=== PATIENT | female | born 1960 | race Caucasian/White ===

== ENCOUNTER 2017-01-23 09:51 | Emergency (ER) | payer OTHER ==
[~2017-01-23] VITALS: Wt 115.7 kg
[~2017-01-23 09:51] MED LIST: ACTOS15 MG PO; ALDACTONE100 MG PO; GLIPIZIDE5 M1 PO; LEXAPRO5 MG PO; Levoxyl0.137 MG PO; NORCO 325 MG-51 TAB PO; PARAFON FORTE500 MG PO; [UNRECOGNIZED DRUG - REMARK]
== END 2017-01-23 12:28 | disposition home or self-care (01) ==
LOC: ED 09:51
DX: M25.562 Pain in left knee (principal); M25.462 Effusion, left knee; Z88.1 Allergy status to other antibiotic agents; Z88.5 Allergy status to narcotic agent; E11.9 Type 2 diabetes mellitus without complications; E03.9 Hypothyroidism, unspecified; Z86.718 Personal history of other venous thrombosis and embolism

== ENCOUNTER 2018-07-02 17:42 | Inpatient (IN) | payer OTHER ==
[~2018-07-02] VITALS: Ht 160 cm; Wt 114.5 kg
--- NOTE | ~2018-07-02 | EKG ---
[place], [place] ELECTROCARDIOGRAM REPORT NAME: AMINA PETTY UNIT #: [id number] ROOM: 512 DOCTOR: LUCILLE DRAFT REPORT BIRTHDATE: [birth year] [facility] Test Date: 2018-07-02 Test Time: 18:12:22 Pat Name: AMINA PETTY Department: Room: 512 Gender: F Farm Equipment Mechanic: : 1960 Requested By: TONG JOVEL PA-C Order Number: [id number] Reading MD: Donavan Monroe MD Measurements Intervals [place] Rate: 90 P: -14 PA: 200 QRS: 29 QRSD: 92 T: 28 QT: 340 QTc: 416 Interpretive Statements Sinus rhythm Low voltage, precordial leads Electronically Signed On 07-03-2018 16:16:46 PST by Donavan Monroe MD CM:EKGRPT:ELECTROCARDIOGRAM REPORT [id number] TONG JOVEL PA-C EPIPHANY DRAFT REPORT TONG JOVEL PA-C
[~2018-07-02 17:42] MED LIST changes: +LEXAPRO5 M1 PO; -LEXAPRO5 MG PO
[2018-07-02 17:43] VITALS: BP 131/69
[2018-07-02 18:22] LABS: HEMATOCRIT 40.9 % (37.0-47.0); HEMOGLOBIN 13.9 g/dl (12.0-16.0); MEAN CELL VOLUME 91.5 fl (81.0-99.0); MEAN CORPUSCULAR HGB 31.1 pg (27.0-31.0); MEAN PLATELET VOLUME 10.3 fl (9.6-12.3); PLATELET COUNT AUTOMATED 117 10*3/uL (130-400); RED BLOOD COUNT 4.47 10*6/uL (4.10-5.10); RED CELL DISTRI WIDTH 12.6 % (0-14.5); WHITE BLOOD COUNT 3.7 10*3/uL (4.8-10.8)
--- NOTE | 2018-07-02 18:33 | NUR ---
POX 88% ON ROOM AIR AFTER AEROSOL TX. PLACED ON 2L NC.
[2018-07-02 18:42] LABS: ACT PARTIAL THROMBO TIME 22.4 SECONDS (20.8-31.5); INTERNATIONAL NORM RATIO 1.1 (2.0-3.5)
[2018-07-02 18:44] LABS: ALBUMIN 2.9 gm/dl (3.1-4.5); ALKALINE PHOSPHATASE 133 U/L (45-117); ATYPICAL LYMPHS 1 % (0-0); BUN 14 mg/dl (7-24); BURR CELLS FEW; CHLORIDE 92 mmol/L (98-107); CREATININE 1.06 mg/dL (0.55-1.02); PLATELET SUFFICIENCY NORMAL (NORMAL); POTASSIUM 4.1 mmol/L (3.5-5.1); SGOT/AST 173 IU/L (3-35); SGPT/ALT 147 U/L (12-78); SODIUM 130 mmol/L (136-145); TOTAL CELLS COUNTED 100 #CELLS; TOTAL PROTEIN 7.6 gm/dL (6.4-8.2)
[2018-07-02 18:48] LABS: TROPONIN I < 0.015 ng/ml (<0.045)
[2018-07-02 19:09] LABS: BILIRUBIN NEGATIVE (NEGATIVE); BLOOD TRACE-INTACT (NEGATIVE); CLARITY SL CLOUDY (CLEAR); COLOR YELLOW (YELLOW); GLUCOSE 1+ (NEGATIVE); KETONE TRACE (NEGATIVE); LEUKO ESTERASE NEGATIVE (NEGATIVE); NITRITE NEGATIVE (NEGATIVE); SPECIFIC GRAVITY 1.025 (1.005-1.030)
[2018-07-02 19:14] LABS: BACTERIA 2+; RBC 0-2 rbc/hpf (0-2)
[2018-07-02 19:15] LABS: MUCOUS TRACE
[2018-07-02 20:07] VITALS: BP 130/70
[2018-07-02 21:10] VITALS: BP 124/51
--- NOTE | 2018-07-02 21:10 | NUR ---
A 57, admitted to , under the services of SAMEER Worthy DO with a diagnosis of VIRAL SYNDROME, HYPOXIA. Chief complaint is COUGH, CONGESTION, CHILLS FOR ABOUT A WEEK. Patient arrived via stretcher from ER. Monitor applied. Initial assessment completed. Vital signs taken and recorded. SAMEER WORTHY DO notified of admission to the unit. Orders received. See assessment for past medical history, medications and allergies. Patient and/or family oriented to unit. [facility] visitation policy reviewed. Clothing/patient valuable form completed. TANG ARREOLA
--- NOTE | 2018-07-02 21:20 | NUR ---
IV LEVAQUIN INFUSING WHEN TAKEN TO FLOOR
[2018-07-02] MEDS ORDERED: LEVOXYL137 MCG PO (21:47)
[2018-07-02] MEDS ORDERED: GLUCOPHAGE1000 MG PO (21:51)
[2018-07-02] MEDS ORDERED: TRESIBA FL200 UNIT/1 SQ (21:54)
[2018-07-02] MEDS ORDERED: METFORMIN HYDR500 MG PO (21:58)
--- NOTE | 2018-07-02 22:00 | NUR ---
CALLED DR. HEADLEY TO INFORM HIM THAT PT'S MED REC WAS UPDATED.
[2018-07-02] MEDS ORDERED: HUMALOG 751 UNIT/0.0 SC (22:01)
[2018-07-02] MEDS ORDERED: TRAZODONE100 MG PO (22:28)
[2018-07-02] MEDS ORDERED: PRAVACHOL40 MG PO (22:30)
--- NOTE | 2018-07-02 23:21 | NUR ---
MEDICATED WITH TRAZODONE PER PT'S REQUEST. STATES THAT SHE CANNOT SLEEP WITHOUT IT.
--- NOTE | 2018-07-02 23:30 | NUR ---
BLOOD SUGAR 213.
[2018-07-03] VITALS: BP 119/59
[2018-07-03 07:14] LABS: HEMATOCRIT 39.5 % (37.0-47.0); HEMOGLOBIN 13.1 g/dl (12.0-16.0); MEAN CELL VOLUME 92.3 fl (81.0-99.0); MEAN CORPUSCULAR HGB 30.6 pg (27.0-31.0); MEAN CORPUSCULAR HGB CONC 33.2 g/dl (33.0-37.0); MEAN PLATELET VOLUME 10.7 fl (9.6-12.3); PLATELET COUNT AUTOMATED 117 10*3/uL (130-400); RED BLOOD COUNT 4.28 10*6/uL (4.10-5.10); RED CELL DISTRI WIDTH 12.8 % (0-14.5); WHITE BLOOD COUNT 2.5 10*3/uL (4.8-10.8)
[2018-07-03 07:49] LABS: ALBUMIN 2.6 gm/dl (3.1-4.5); ALKALINE PHOSPHATASE 129 U/L (45-117); BUN 16 mg/dl (7-24); CHLORIDE 97 mmol/L (98-107); CHOLESTEROL 135 mg/dL (<200); CREATININE 0.92 mg/dL (0.55-1.02); FREE T4 1.12 ng/dl (0.76-1.46); HDL CHOLESTEROL 19 mg/dl (40-60); LDL CHOLESTEROL 84 mg/dL (9-159); POTASSIUM 4.5 mmol/L (3.5-5.1); SGOT/AST 110 IU/L (3-35); SGPT/ALT 137 U/L (12-78); SODIUM 133 mmol/L (136-145); TOTAL PROTEIN 7.3 gm/dL (6.4-8.2); TRIGLYCERIDES 160 mg/dl (<150); VLDL CHOLESTEROL 32 mg/dL (6-40)
[2018-07-03 07:54] LABS: THYROID STIM HORMONE (HS) 0.675 uIU/ml (0.358-4.75)
[2018-07-03 07:56] LABS: ATYPICAL LYMPHS 5 % (0-0); TOTAL CELLS COUNTED 100 #CELLS
[2018-07-03 07:58] LABS: PLATELET SUFFICIENCY NORMAL (NORMAL)
[2018-07-03 08:00] VITALS: BP 120/60
--- NOTE | 2018-07-03 11:46 | NUR ---
Digital Analyst in to talk to patient. Patient states lives at HOME with BOYFRIEND. There are NO steps in the home. Physician: ANNAMARIA Pharmacy: MAIL ORDER Home health services: NONE Patient's level of ADLs: INDEPENDENT Patient has working utilities: YES DME: NONE Follow-up physician's appointment after d/c: WILL BE MADE BY HOSPITALIST NURSE DIRECTOR ON DISCHARGE Does patient want to access PORTAL?: NO Discharge plan PT STATES SHE LIVES AT HOME AND IS INDEPENDENT IN CARE. DENIES ANY NEEDS ON DISCHARGE. CAN BE DISCHARGED TO HOME WHEN MEDICALLY STABLE.. JOHN NEAL
[2018-07-03 12:00] VITALS: BP 113/67
--- NOTE | 2018-07-03 14:14 | NUR ---
DR BRITT INFORMED OF REDNESS TO INGUINAL AREA. NYSTATIN POWDER TO BE ORDERED.
[2018-07-03 16:00] VITALS: BP 118/74
--- NOTE | 2018-07-03 19:58 | NUR ---
24 HR chart check completed.
[2018-07-03 20:00] VITALS: BP 121/55
--- NOTE | 2018-07-03 20:00 | NUR ---
SITTING IN RECLINER, TALKING ON PHONE. RESPIRATIONS EASY. LUNGS DIMINISHED, CLEAR. PULSE OX 94% RA. CLAIMS INFREQUENT COUGH, NONE NOTED UPON ASSESSMENT. OFFERED AND EDUCATED REGARDING TEDS, DECLINED STATING SHE IS AMBULATING WITHIN ROOM. CALL LIGHT WITHIN REACH. NO VOICED COMPLAINTS
--- NOTE | 2018-07-03 21:00 | NUR ---
PATIENT PICKS UP GLASS OF WATER AND EXAGGERATINGLY BEGINS SHAKING HAND, STATING "LOOK HOW BAD I'M SHAKING, I CAN'T HOLD MY WATER." WHILE CONVERSING WITH PATIENT, NO SHAKING NOTED.
--- NOTE | 2018-07-03 21:15 | NUR ---
BSG 380. NO SLIDING SCALE COVERAGE ORDERED. HOME MEDS REVIEWED WITH PATIENT AND UPDATED IN MED REC. DR YOON CONTACTED AND INFORMED OF ELEVATED SUGAR WITH NO COVERAGE DUE
--- NOTE | 2018-07-03 21:20 | NUR ---
DR HEADLEY CALLED IN. HOME MEDS AND ELEVATED BSG REVIEWED. DR HEADLEY TO ENTER NEW ORDERS
--- NOTE | 2018-07-03 22:30 | NUR ---
ORTHOS CHECKED, NEGATIVE. SUPINE 125/52 70 SITTING 125/52 68 STANDING 129/54 75
[2018-07-04] VITALS: BP 117/63
--- NOTE | 2018-07-04 | NUR ---
REMAINS IN RECLINER, NO DISTRESS NOTED. RESPIRATIONS EASY. VSS. CALL LIGHT WITHIN REACH
--- NOTE | 2018-07-04 03:00 | NUR ---
REMAINS IN RECLINER SLEEPING WITH NO DISTRESS NOTED. RESPIRATIONS EASY. CALL LIGHT WITHIN REACH
--- NOTE | 2018-07-04 06:00 | NUR ---
UPON AWAKENING FOR AM MEDS AND BSG CHECK, PATIENT STATES "I ONLY SLEPT 1 HR". HOWEVER, PATIENT WAS OBSERVED SLEEPING IN RECLINER UPON RN ROUNDING THROUGHOUT NIGHT. HESITANT TO TAKE SLIDING SCALE INSULIN COVERAGE, EDUCATED REGARDING IMPORTANCE OF REGULATING SUGARS. PATIENT RELUCTANT BUT ALLOWS RN TO ADMINISTER COVERAGE
[2018-07-04 06:44] LABS: ALBUMIN 2.8 gm/dl (3.1-4.5); ALKALINE PHOSPHATASE 111 U/L (45-117); BUN 22 mg/dl (7-24); CHLORIDE 100 mmol/L (98-107); CREATININE 0.84 mg/dL (0.55-1.02); POTASSIUM 4.3 mmol/L (3.5-5.1); SGOT/AST 47 IU/L (3-35); SGPT/ALT 104 U/L (12-78); SODIUM 137 mmol/L (136-145); TOTAL PROTEIN 7.1 gm/dL (6.4-8.2)
[2018-07-04 08:00] VITALS: BP 118/62
--- NOTE | 2018-07-04 08:00 | NUR ---
SITTING UP IN BED. RESP-EASY AND REGULAR. NO C/O AT THIS TIME. CALL LIGHT IN REACH. SEE SHIFT ASSESSMENT.
--- NOTE | 2018-07-04 09:00 | NUR ---
TOLERATED ROUTINE MEDS WITH NO PROBLEM. NO C/O AT THIS TIME. CALL LIGHT IN REACH.
--- NOTE | 2018-07-04 09:45 | NUR ---
Discharge instructions reviewed with patient/family. Patient receptive and verbalizes understanding. Follow-up care arranged. Written instructions given to patient/family. HEPLOCK REMOVED 2X2 APPLIED. MONITOR REMOVED. MANNY SWARTZ
--- NOTE | 2018-07-04 10:00 | NUR ---
ESCORTED VIA WHEELCHAIR FOR DISCHARGE.
[2018-07-04] MEDS ORDERED: PREDNISONE10 MG PO (10:47)
[2018-07-04] MEDS ORDERED: LEVAQUIN750 M1 PO (10:47)
== END 2018-07-04 10:00 | disposition home or self-care (01) | DRG 871 ==
LOC: ED 17:42 → EDHOLD 19:55 → 5E 19:55
PROVIDERS: Family Medicine; Physician Assistant; Student in an Organized Health Care Education/Training Program; ADMIT Internal Medicine
DX: A41.9 Sepsis, unspecified organism (principal); J96.01 Acute respiratory failure with hypoxia; E43 Unspecified severe protein-calorie malnutrition; E87.1 Hypo-osmolality and hyponatremia; N30.01 Acute cystitis with hematuria; J44.1 Chronic obstructive pulmonary disease with (acute) exacerbation; J45.21 Mild intermittent asthma with (acute) exacerbation; Z68.41 Body mass index [BMI] 40.0-44.9, adult; R65.20 Severe sepsis without septic shock; Z96.651 Presence of right artificial knee joint; B34.9 Viral infection, unspecified; D69.6 Thrombocytopenia, unspecified; E66.01 Morbid (severe) obesity due to excess calories; D72.810 Lymphocytopenia; E03.9 Hypothyroidism, unspecified; L65.9 Nonscarring hair loss, unspecified; E78.5 Hyperlipidemia, unspecified; F32.9 Major depressive disorder, single episode, unspecified; G47.9 Sleep disorder, unspecified; E11.65 Type 2 diabetes mellitus with hyperglycemia; Z87.891 Personal history of nicotine dependence; Z82.49 Family history of ischemic heart disease and other diseases of the circulatory system; Z83.3 Family history of diabetes mellitus; Z83.438 Family history of other disorder of lipoprotein metabolism and other lipidemia; Z83.1 Family history of other infectious and parasitic diseases; Z88.1 Allergy status to other antibiotic agents; Z88.8 Allergy status to other drugs, medicaments and biological substances; Z79.899 Other long term (current) drug therapy; Z79.4 Long term (current) use of insulin

== ENCOUNTER 2022-12-07 20:14 | Emergency (ER) | payer OTHER ==
[~2022-12-07] VITALS: Ht 160 cm; Wt 124.7 kg
[~2022-12-07 20:14] MED LIST changes: +GLUCOPHAGE1000 MG PO; +HUMALOG 751 UNIT/0.0 SC; +LEVAQUIN750 M1 PO; +LEVOXYL137 MCG PO; +METFORMIN HYDR500 MG PO; +PRAVACHOL40 MG PO; +PREDNISONE10 MG PO; +TRAZODONE100 MG PO; +TRESIBA FL200 UNIT/1 SQ
[2022-12-07] MEDS ORDERED: REXULTI1 MG PO (20:29)
[2022-12-07] MEDS ORDERED: AUVELITY ER 451 EACH PO (20:30)
[2022-12-07] MEDS ORDERED: HYDROCODONE-AC1 EAC1 PO (22:44)
== END 2022-12-08 06:22 | disposition home or self-care (01) ==
LOC: ED 20:14
DX: S42.202A Unspecified fracture of upper end of left humerus, initial encounter for closed fracture (principal); S02.2XXA Fracture of nasal bones, initial encounter for closed fracture; M79.641 Pain in right hand; E11.9 Type 2 diabetes mellitus without complications; Z88.8 Allergy status to other drugs, medicaments and biological substances; Z98.890 Other specified postprocedural states; Z96.651 Presence of right artificial knee joint; Z87.891 Personal history of nicotine dependence; W01.198A Fall on same level from slipping, tripping and stumbling with subsequent striking against other object, initial encounter; Y93.89 Activity, other specified; Y92.009 Unspecified place in unspecified non-institutional (private) residence as the place of occurrence of the external cause; Y99.8 Other external cause status

== ENCOUNTER 2023-06-17 08:03 | Emergency (ER) | payer OTHER ==
[~2023-06-17] VITALS: Ht 160 cm; Wt 102.1 kg
[~2023-06-17 08:03] MED LIST changes: +AUVELITY ER 451 EACH PO; +HYDROCODONE-AC1 EAC1 PO; +REXULTI0.5 MG PO; +REXULTI1 MG PO
== END 2023-06-17 09:26 | disposition home or self-care (01) ==
LOC: ED 08:03
DX: K94.03 Colostomy malfunction (principal); Z88.8 Allergy status to other drugs, medicaments and biological substances; Z98.890 Other specified postprocedural states; Z96.651 Presence of right artificial knee joint; Z87.891 Personal history of nicotine dependence; Y84.8 Other medical procedures as the cause of abnormal reaction of the patient, or of later complication, without mention of misadventure at the time of the procedure; Y82.8 Other medical devices associated with adverse incidents

== ENCOUNTER 2023-06-21 13:58 | Emergency (ER) | payer OTHER, MEDICAID ==
[~2023-06-21] VITALS: Ht 160 cm; Wt 99.8 kg
[2023-06-21] MEDS ORDERED: FOLIC ACID0.8 M1 PO (14:16)
[2023-06-21 14:58] LABS: BASO # 0.1 10*3/uL (0.0-0.1); BASO % 0.4 % (0.0-1.0); EOS # 0.3 10*3/uL (0.0-0.4); EOS % 2.8 % (1.0-4.0); LYMPH # 1.3 10*3/uL (1.3-4.4); LYMPH % 10.7 % (27.0-41.0); MEAN CELL VOLUME 91.5 fl (81.0-99.0); MEAN CORPUSCULAR HGB CONC 32.8 g/dl (33.0-37.0); MEAN PLATELET VOLUME 9.5 fl (9.6-12.3); MONO # 0.8 10*3/uL (0.1-1.0); MONO % 6.5 % (3.0-9.0); NEUT # 9.6 10*3/uL (2.3-7.9); PLATELET COUNT AUTOMATED 401 10*3/uL (130-400); RED BLOOD COUNT 4.26 10*6/uL (4.10-5.10); RED CELL DISTRI WIDTH 12.4 % (0-14.5); WHITE BLOOD COUNT 12.2 10*3/uL (4.8-10.8)
[2023-06-21 15:18] LABS: ACT PARTIAL THROMBO TIME 28.2 SECONDS (20.0-32.1)
[2023-06-21 15:26] LABS: ALKALINE PHOSPHATASE 121 U/L (46-116); BUN 18 mg/dl (9-23); CHLORIDE 96 mmol/L (98-107); POTASSIUM 4.3 mmol/L (3.4-5.1); SGPT/ALT 27 U/L (5-49); TOTAL PROTEIN 7.9 gm/dL (6.0-8.0)
== END 2023-06-22 18:20 | disposition short-term general hospital (02) ==
LOC: ED 13:58
PROVIDERS: Emergency Medicine
DX: I70.90 Unspecified atherosclerosis (principal); E11.65 Type 2 diabetes mellitus with hyperglycemia; I10 Essential (primary) hypertension; E78.5 Hyperlipidemia, unspecified; Z88.8 Allergy status to other drugs, medicaments and biological substances; Z98.890 Other specified postprocedural states; Z96.651 Presence of right artificial knee joint; Z87.891 Personal history of nicotine dependence

== ENCOUNTER 2025-06-04 14:54 | Emergency (ER) | payer MEDICAID ==
[~2025-06-04] VITALS: Ht 160 cm; Wt 85.7 kg
[~2025-06-04 14:54] MED LIST changes: +ASPIRIN ADULT L81 M2 PO; +CILOSTAZOL100 MG PO; +ELIQUIS5 M1 PO; +ESTRACE 0.01%42.5 GM V; +FOLIC ACID0.8 M1 PO; +LISINOPRIL10 M1 PO; +NATURE'S BLEND F1 MG PO; +PLAVIX75 M1 PO; +ROSUVASTATIN CA40 MG PO; +TRINTELLIX10 MG PO; +VENT7GM INH; +VRAYLAR1.5 MG PO
[2025-06-04 14:56] VITALS: BP 139/76
[2025-06-04] MEDS ORDERED: SODIUM CHLORIDE 0.9% 1,000 ML IV ONE ×2 (15:15→17:30)
[2025-06-04 15:59] LABS: BUN 12 mg/dl (9-23); SGPT/ALT 14 U/L (5-49)
[2025-06-04 16:01] LABS: BASO # 0.0 10*3/uL (0.0-0.1); BASO % 0.4 % (0.0-1.0); EOS # 0.1 10*3/uL (0.0-0.4); EOS % 1.4 % (1.0-4.0); MEAN CELL VOLUME 91.3 fl (81.0-99.0); MEAN CORPUSCULAR HGB 30.9 pg (27.0-31.0); MEAN PLATELET VOLUME 9.4 fl (9.6-12.3); MONO # 0.7 10*3/uL (0.1-1.0); MONO % 8.8 % (3.0-9.0); NEUT # 6.1 10*3/uL (2.3-7.9); NEUT % 75.6 % (47.0-73.0); NUCLEATED RED BLOOD CELL 0.0 % (0.0-0.0); NUCLEATED RED BLOOD CELL 0.0 10*3/uL (0.0-0.0); PLATELET COUNT AUTOMATED 187 10*3/uL (130-400); RED CELL DISTRI WIDTH 12.2 % (0-14.5)
[2025-06-04 17:49] LABS: BILIRUBIN Negative (Negative); BLOOD Negative (Negative); CLARITY Clear (Clear); COLOR Yellow (Yellow); KETONE 2+ (Negative); LEUKO ESTERASE Negative (Negative); NITRITE Negative (Negative); PH 5.0 (4.5-8.0); SPECIFIC GRAVITY >= 1.030 (1.001-1.030); UROBILINOGEN 0.2 E.U./dl (0.0-1.0)
[2025-06-04 17:57] LABS: BACTERIA 1+; WBC 31-40 wbc/hpf (0-5)
== END 2025-06-04 20:28 | disposition left against medical advice (07) ==
LOC: ED 14:54 → EDHOLD 20:05 → ED 20:28
PROVIDERS: Nurse Practitioner Family
DX: R26.89 Other abnormalities of gait and mobility (principal); E11.65 Type 2 diabetes mellitus with hyperglycemia; E03.9 Hypothyroidism, unspecified; E78.5 Hyperlipidemia, unspecified; Z96.651 Presence of right artificial knee joint; Z98.890 Other specified postprocedural states; Z88.6 Allergy status to analgesic agent; Z88.8 Allergy status to other drugs, medicaments and biological substances; Z79.899 Other long term (current) drug therapy

== ENCOUNTER 2025-06-09 11:29 | Emergency (ER) | payer OTHER, MEDICAID ==
[~2025-06-09] VITALS: Ht 160 cm; Wt 85.3 kg
[2025-06-09] MEDS ORDERED: VENT7GM INH (11:55)
== END 2025-06-09 12:20 | disposition home or self-care (01) ==
LOC: ED 11:29
DX: U07.1 COVID-19 (principal); E11.9 Type 2 diabetes mellitus without complications; Z87.891 Personal history of nicotine dependence; Z96.651 Presence of right artificial knee joint; Z98.890 Other specified postprocedural states; Z88.6 Allergy status to analgesic agent